=== PATIENT | male | born 1955 | race Caucasian/White ===

== ENCOUNTER 2020-01-17 11:20 | Outpatient (NON) | payer MEDICARE, OTHER, SELFPAY ==
[2020-01-17 23:21] LABS: SARS-CoV-2 RNA PCR Positive
== END 2020-01-17 11:21 ==
PROVIDERS: Visit Provider Family Medicine
DX: U07.1 COVID-19 (principal); R05 Cough
CPT/HCPCS: 87635; C9803; U0003